=== PATIENT | female | born 1965 | race Caucasian/White ===

== ENCOUNTER 2021-02-13 01:17 | Emergency (ER) | payer OTHER ==
[~2021-02-13 01:17] MED LIST: NORCO 5-325 TA1 EACH PO
[2021-02-13 02:31] LABS: EOSINOPHIL 1.7 % (0-5); HCT 42.4 % (37.0-47.0); HGB 13.8 g/dl (12.5-16.0); LYMPHOCYTE 44.2 % (15-48); MCH 28.5 pg (25.0-31.0); MCHC 32.5 g/dL (32.0-36.0); MCV 87.4 fL (78.0-100.0); MONOCYTE 9.1 % (0-12); MPV 11.6 fL (6.0-9.5); NEUTROPHIL 43.6 % (41-80); NRBC 0; PLT 211 K/uL (150-400); RBC 4.85 M/uL (4.20-5.40); RDW 12.7 % (11.5-14.0); WBC 8.2 K/uL (4.0-10.5)
[2021-02-13 02:35] LABS: INR 0.99 (0.9-1.2); PROTHROMBIN TIME 12.5 SECONDS (11.8-13.4)
[2021-02-13 02:36] LABS: PTT 27.2 SECONDS (24.4-34.7)
[2021-02-13 02:39] LABS: BILIRUBIN - TOTAL 0.3 mg/dL (0.2-1.0); BUN/CREAT RATIO (CALC) 18.8 RATIO; CREATININE 0.69 mg/dL (0.51-0.95); GLOBULIN (CALCULATION) 3.3 g/dL; POTASSIUM 3.7 mmol/L (3.5-5.1); TOTAL PROTEIN 7.3 g/dL (6.4-8.2)
== END 2021-02-13 03:50 | disposition home or self-care (01) ==
LOC: FER 01:17
PROVIDERS: Emergency Medicine Emergency Medical Services
DX: R07.89 Other chest pain (principal); K21.9 Gastro-esophageal reflux disease without esophagitis; E11.9 Type 2 diabetes mellitus without complications; E78.5 Hyperlipidemia, unspecified; Z79.84 Long term (current) use of oral hypoglycemic drugs; Z79.899 Other long term (current) drug therapy
CPT/HCPCS: 36415; 71045; 80053; 84443; 84484; 85025; 85610; 85730; 93005